=== PATIENT | female | born 1980 | race Caucasian/White ===

== ENCOUNTER 2016-04-22 18:34 | Emergency (ER) | payer OTHER ==
[2016-04-22 17:00] LABS: ASCORBIC ACID (UR NOT ORDER) NEG (NEG); BILIRUBIN, URINE NEGATIVE (NEG); KETONE, URINE NEGATIVE (NEG); LEUKOCYTE ESTERASE(NOT OR NEG (NEG); NITRITE (URINE) NEG (NEG); WBC (NOT ORDERED) (RFLEX) 5 (0-5)
[2016-04-22 17:26] LABS: BASOPHILS 0.2 %; BASOPHILS ABSOLUTE 0.03 10/3/uL (0.0-0.16); EOSINOPHILS 1.5 %; EOSINOPHILS ABSOLUTE 0.18 10/3/uL (0.0-0.53); ER CBC TAT 0 Hrs 05 Mins; HEMOGLOBIN 10.9 g/dL (12.0-16.0); IMMATURE GRANULOCYTES 0.2 %; IMMATURE GRANULOCYTES ABSOLUTE 0.03 10/3/uL (0.0-0.11); LYMPHOCYTES 16.9 %; LYMPHOCYTES ABSOLUTE 2.03 10/3/uL (0.67-4.30); MEAN CORPUS HGB CONC 31.1 g/dL (32.0-36.0); MEAN CORPUSCULAR HEMOGLOB 24.7 pg (26.0-34.0); MEAN CORPUSCULAR VOLUME 79.2 fL (80-100); MEAN PLATELET VOLUME 9.5 fL (9.2-13.0); MONOCYTES 4.2 %; NEUTROPHILS ABSOLUTE 9.26 10/3/uL (2.02-8.40); PLATELET COUNT 184 10/3/uL (150-400); RBC DISTRIBUTION WIDTH 16.6 % (12.0-16.0); RED CELL COUNT 4.42 10/6/uL (4.0-5.6)
[2016-04-22 17:27] LABS: MANUAL DIFF NO %
[2016-04-22 17:46] LABS: A/G RATIO 0.6 (0.7-1.9); ALBUMIN 2.7 G/DL (3.5-5.0); ALKALINE PHOSPHATASE 95 U/L (45-117); BUN (BLOOD UREA NITROGEN) 16 MG/DL (6-23); CALCIUM, SERUM 8.5 MG/DL (8.5-10.4); CHLORIDE, SERUM 104 MMOL/L (96-112); CO2 (CARBON DIOXIDE) 26 MMOL/L (24-34); CREATININE 1.29 MG/DL (0.55-1.02); GFR AFRICAN AMERICAN 62 ML/MIN (>=60); GFR NON AFRICAN AMERICAN 54 ML/MIN (>=60); GLOBULIN 4.6 G/DL (2.5-4.1); GLUCOSE, SERUM 85 MG/DL (60-99); POTASSIUM, SERUM 3.8 MMOL/L (3.5-5.3); SGOT(AST) 16 U/L (5-40); SGPT(ALT) 28 U/L (5-65); SODIUM, SERUM 141 MMOL/L (135-148); TOTAL BILIRUBIN 0.2 MG/DL (0-1.2); TOTAL PROTEIN 7.3 G/DL (6.0-8.5)
== END 2016-04-22 18:37 | disposition home or self-care (01) ==
LOC: ER 18:34
PROVIDERS: Emergency Medicine
DX: R10.9 Unspecified abdominal pain (principal); I10 Essential (primary) hypertension; F32.9 Major depressive disorder, single episode, unspecified; Z88.5 Allergy status to narcotic agent
CPT/HCPCS: 80053; 81001; 83690; 84703; 85025; 93005; 99284; A9270-GY

== ENCOUNTER 2016-05-01 13:50 | Inpatient (IN) | payer OTHER ==
--- NOTE | ~2016-05-01 | DS ---
Discharge Summary [facility] [address] [place]. [address] NAME: HUGO BANKS : 82 STATUS : DIS IN PAT#: [id number] AGE: 36 ADM/REG DATE : 05/01/16 MR#: [id number] REPORT SERV DATE: 06/21/16 DICTATED BY: KIAN GILL II DATE: 06/20/16 REPORT STATUS : Draft TRANSCRIBED BY: MODL DATE: 06/20/16 ADMISSION DATE: 05/01/2016 DISCHARGE DATE: 05/03/2016 DISCHARGE DIAGNOSES: 1. Radiculopathy with S1 herniated nucleus pulposus. 2. Chronic pain with opiate dependence. 3. Questionable iliac and IVC thrombus. 4. Protein S deficiency with history of deep vein thrombosis. 5. Morbid obesity. CONSULTS: Dr. Bansal with [facility] and Dr. Ramirez with [facility]. BRIEF HISTORY OF PRESENT ILLNESS: The patient is a 36-year-old female with the above history who presented to [facility] due to reported inability to walk over the prior 24 hours due to back pain and radiculopathy. For detailed history and physical examination, please see Dr. Ferrer's note from 05/01/2016. HOSPITAL COURSE: On admission, an MRI of the spine was done which showed small to moderate left central herniation with mass effect on the left S1 nerve root. No apparent high-grade central canal stenosis or cauda equina. Dr. Basnal was consulted and did not think that the patient's symptoms which seemed out of proportion to clinical exam could be from the mild to moderate S1 nerve root compression. The patient's symptoms seemed to be more related to back pain with minimal radiculopathy, and no evidence of actual neurologic compromise. She has somewhat poor effort on clinical exam. The patient's symptoms improved with Neurontin, Robaxin, and I have recommended outpatient physical therapy as she is currently ambulating well with use of a walker per PT. No inpatient rehab recommended. Regarding the questionable thrombosis, CT of the abdomen showed suspect perivenous edema adjacent to the common iliac veins and IVC. The radiologist was unable to evaluate whether the IVC and iliac veins are thrombosed though I did recommend a repeat evaluation with a venous phase enhancement at a later date. Right lower extremity Doppler was also negative for DVT. Overall, the patient was clinically stable for discharge. Dr. Ramirez thought given the concern for recurrent thrombus despite Eliquis, he changed her to Lovenox. A followup CTA with venous phase was scheduled, and the patient was subsequently discharged home. DISCHARGE MEDICATIONS: 1. Atenolol 25 mg p.o. b.i.d. 2. Lovenox 40 mg subcu b.i.d. 3. Neurontin 300 mg p.o. t.i.d. 4. [place] 10/325 mg p.o. q.6 hours p.r.n. 5. Hydrocodone/acetaminophen 10/300 one tab p.o. q.6 hours p.r.n. 6. Zofran p.r.n. 7. Effexor 75 mg p.o. at bedtime. DISCHARGE INSTRUCTIONS: She will follow up with Dr. Ramirez in one to two weeks. Otherwise, followup with her PCP in 1 to 2 weeks. Discharge Summary [address] [address] NAME: HUGO BANKS : 82 STATUS : DIS IN PAT#: [id number] AGE: 36 ADM/REG DATE : 05/01/16 MR#: [id number] REPORT SERV DATE: 06/21/16 DICTATED BY: KIAN GILL II DATE: 06/20/16 REPORT STATUS : Draft TRANSCRIBED BY: ZEENAT DATE: 06/20/16 ANDREIA/ZEENAT Kian Gill II, MD / [id number] CC: MD Asael Martinez II, M.D.
--- NOTE | ~2016-05-01 | HP ---
History And Physical [facility] [id number] [place]. [address] NAME: HUGO BANKS : [birth year] STATUS : ADM IN [facility]#: [id number] AGE: 36 ADM/REG DATE : 05/01/16 MR#: [id number] REPORT SERV DATE: 05/02/16 DICTATED BY: BECCA DOMINIQUE DATE: 05/01/16 REPORT STATUS : Draft TRANSCRIBED BY: MODL DATE: 05/01/16 DATE OF ADMISSION: 05/01/2016 REASON FOR ADMISSION: Inability to walk per patient subjectively over the past 24 hours. Prior to this, she was able to walk just fine per patient. Asael Carbajal M.D. is her primary care doctor, sees Dr. Ramirez for protein S deficiency for which she for the past several months has been on Eliquis 5 p.o. b.i.d. She has never had a PE, only DVTs, no IVC filter. HISTORY OF PRESENT ILLNESS: This is a 36-year-old obese female. She has a known past medical history of hypertension, polycystic ovarian syndrome, unfortunate diagnosis of protein S deficiency in 2007 for which she has had at least a couple of DVTs, never had a PE, never had an IVC filter, surgical history of tonsillectomy, unclear heart surgery which she described as surgical repair of coarctation of aorta at age 3, known history of chronic opioid dependence likelihood given taking hydrocodone 10 p.o. q.6 at home. The patient comes in after recently being hospitalized in [place], [place], at that time had [facility], was thought to have possible abdominal vasculature thrombosis, supposed to get CTA of the abdomen and pelvis here, however, that was canceled upon having inability to walk for the past 24 hours, comes in here has an MRI of her lumbar spine and indeed does show small to moderate left central herniation with mass effect on the left S1 nerve root. The patient has exquisite pain to straight leg raising with increased pain in her inferior buttock region per patient. The patient denies any fevers, chills, positive nausea, some emesis, appears to be nonbilious. No diarrhea. No chest pain. No chest pressure. No shortness of breath. No cough per patient. The patient states that she had nausea and vomiting for which she was hospitalized in [place], [place], apparently in late March 2016, did not receive an endoscopy at that time. We will need to get records. PAST MEDICAL HISTORY/PAST SURGICAL HISTORY: See above. REVIEW OF SYSTEMS: Review of systems done, see HPI. Otherwise, negative. ALLERGIES: APPARENTLY HAS NUMBNESS OF THE TONGUE TO LISINOPRIL UNCLEAR, VOMITING TO TRAMADOL DRUG INTOLERANCE, RED STREAKS IN HER ARM FROM MORPHINE YET TAKES LORTAB, HAS SEVERE CHEST PAIN DUE TO DHE OR DIHYDROERGOTAMINE. FAMILY HISTORY: Hypertension at least one parent. SOCIAL HISTORY: She claims not to do drugs, or do alcohol or smoke nor has ever. History And Physical [address] [address] NAME: HUGO BANKS : [birth year] STATUS : ADM IN [facility]#: [id number] AGE: 36 ADM/REG DATE : 05/01/16 MR#: [id number] REPORT SERV DATE: 05/02/16 DICTATED BY: BECCA DOMINIQUE DATE: 05/01/16 REPORT STATUS : Draft TRANSCRIBED BY: ZEENAT DATE: 05/01/16 OBJECTIVE: VITAL SIGNS: She is 208/86, 98.7, 73 pulse, 16 respiration, 90% on room air. GENERAL: No acute distress. HEENT: PERRLA. No scleral icterus. CARDIOVASCULAR: Regular rate and rhythm. No murmur. RESPIRATORY: Decreased breath sounds bibasilarly. No wheezes. No crackles. ABDOMEN: Obese, nontender. Nondistended. Positive bowel sounds. EXTREMITIES: She does not have any tenderness to palpation in that region. NEURO: She has about 4/5 power plantar flexion, dorsiflexion, bilateral lower extremities; 5/5 power in bilateral upper extremities. She is A and O 4/4, GCS of 15. PSYCH: She is mildly anxious. LABORATORY DATA: White count 14.7, hemoglobin 10.6, 293,000 platelets, 4.1 potassium, 27 bicarb, 0.81 creatinine, 12 BUN, 139 sodium, 88 sugar. MRI see above. She does not have an EKG at the moment. ASSESSMENT AND PLAN: 1. Positive radiographic MRI, positive left S1 nerve root sciatica, small to moderate left central herniated with mass effect with subjective inability to walk, positive left straight leg raise. 2. Concern for possible mesenteric thrombosis due to her history of protein S deficiency. Currently anticoagulated as the patient claims compliance to Eliquis 5 p.o. b.i.d. 3. History of narcotic dependence likelihood. 4. History of nausea and vomiting, formerly addressed in [facility]. We need to get records regarding that disposition. PLAN: We will go ahead and admit this patient. We will get blood cultures given her SIRS of 14,700 white count. I would also like to place her on baclofen 5 p.o. t.i.d. p.r.n., Robaxin 500 p.o. t.i.d. p.r.n., hydralazine 10 IV q.4h for hypertensive urgency. Then, we will do carvedilol 3.125 p.o. b.i.d., and titrate as appropriate. We will do bilateral lower extremity ultrasounds regarding this VTE risk and CTA of her abdomen pelvis for possible mesenteric thrombosis risk and get records from Dr. Ramirez as Dr. Ramirez had requested that CTA as an outpatient. We will also get records from [place], [place] and consult [facility] as the patient does have significant motor subjective loss with some mild 4/5 power objective loss that may necessitate possible future surgery if she is intractable to maximal medical management including physical therapy and pain control. See rest of my orders. All questions were answered. It took well over 60 minutes to do. 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 WST/MODL Becca Minaya History And Physical [address] [address] NAME: HUGO BANKS : [birth year] STATUS : ADM IN PAT#: [id number] AGE: 36 ADM/REG DATE : 05/01/16 MR#: [id number] REPORT SERV DATE: 05/02/16 DICTATED BY: BECCA DOMINIQUE DATE: 05/01/16 REPORT STATUS : Draft TRANSCRIBED BY: MODL DATE: 05/01/16 DO Nabil / [id number] CC: Alexei Marquez, M.D.
--- NOTE | ~2016-05-01 | CN ---
Consultation Report [facility] [address] [place]. [address] NAME: HUGO BANKS : 82 STATUS : ADM IN PAT#: [id number] AGE: 36 ADM/REG DATE : 05/01/16 MR#: [id number] REPORT SERV DATE: 05/02/16 DICTATED BY: KIAN BANSAL II DATE: 05/02/16 REPORT STATUS : Draft TRANSCRIBED BY: ZEENAT DATE: 05/02/16 DATE OF CONSULTATION: 05/02/2016 CHIEF COMPLAINT: Inability to walk over the last 48 hours. She has recently been in [place], [place] at the hospital down there for medical issues, possible abdominal vasculature thrombosis. She does also have an MRI of the lumbar spine, which apparently shows a [id number] left HNP at L5-S1. She did have some leg pain she reports, but now she simply cannot walk she says. PAST MEDICAL HISTORY: Protein S deficiency, history of hypertension, history of DVTs. She also has a history of opioid dependency. REVIEW OF SYSTEMS: Please see the ER triage sheet dated 05/01/2016. I have reviewed and agree with it. ALLERGIES: PLEASE SEE THE MAR. MEDICATIONS: Please see the MAR. PHYSICAL EXAMINATION: GENERAL: Reveals a female in no acute distress. She is awake, alert, and oriented. She is morbidly obese. NECK: Supple. CHEST: Reveals no stridor on inspiration or expiration. CARDIOVASCULAR: Regular rate and rhythm when I palpate the radial pulse. ABDOMEN: Obese and nontender. Lower extremities are fairly normal. She is moving her legs well. She has 4/5 strength in the legs. PSYCHIATRIC: Reveals that she is mildly anxious. IMAGING: MRI as noted above. IMPRESSION AND PLAN: She does have a complicated picture. There was some question of a possible aortic thrombosis. Dr. Ramirez is also helping us sort all of this out. In the meantime, I will look at her MRI. According to the report, however, I would not feel that a ajpyn-za-gjealcad sized L5-S1 herniated nucleus pulposus would cause her inability to have her legs support her now while walking. Again, this is currently unclear to me, but I will hopefully be able to confer with Dr. Ramirez and Dr. Ferrer, as well as review the MRI today. ABBIE/MODL Kian Bansal Consultation Report [facility] [address] [place]. [address] NAME: HUGO BANKS : 82 STATUS : ADM IN PAT#: [id number] AGE: 36 ADM/REG DATE : 05/01/16 MR#: [id number] REPORT SERV DATE: 05/02/16 DICTATED BY: KIAN BANSAL II DATE: 05/02/16 REPORT STATUS : Draft TRANSCRIBED BY: MODLucia DATE: 05/02/16 Alexei DIALLO / [id number] CC: MD Asael Martinez II, M.D.
[2016-05-01 14:29] LABS: BASOPHILS 0.3 %; BASOPHILS ABSOLUTE 0.04 10/3/uL (0.0-0.16); EOSINOPHILS 1.1 %; EOSINOPHILS ABSOLUTE 0.16 10/3/uL (0.0-0.53); ER CBC TAT 0 Hrs 11 Mins; HEMATOCRIT 34.1 % (36.0-48.0); HEMOGLOBIN 10.6 g/dL (12.0-16.0); IMMATURE GRANULOCYTES 0.3 %; IMMATURE GRANULOCYTES ABSOLUTE 0.04 10/3/uL (0.0-0.11); LYMPHOCYTES 23.1 %; MANUAL DIFF NO %; MEAN CORPUS HGB CONC 31.1 g/dL (32.0-36.0); MEAN CORPUSCULAR HEMOGLOB 23.9 pg (26.0-34.0); MEAN CORPUSCULAR VOLUME 76.8 fL (80-100); MEAN PLATELET VOLUME 9.2 fL (9.2-13.0); MONOCYTES 6.8 %; NEUTROPHILS 68.4 %; NEUTROPHILS ABSOLUTE 10.07 10/3/uL (2.02-8.40); PLATELET COUNT 293 10/3/uL (150-400); RBC DISTRIBUTION WIDTH 16.5 % (12.0-16.0); RED CELL COUNT 4.44 10/6/uL (4.0-5.6); WHITE BLOOD CELLS 14.7 10/3/uL (4.5-10.5)
[2016-05-01 15:32] LABS: BUN (BLOOD UREA NITROGEN) 12 MG/DL (6-23); CALCIUM, SERUM 8.4 MG/DL (8.5-10.4); CHLORIDE, SERUM 102 MMOL/L (96-112); CO2 (CARBON DIOXIDE) 27 MMOL/L (24-34); CREATININE 0.81 MG/DL (0.55-1.02); GFR AFRICAN AMERICAN 109 ML/MIN (>=60); GFR NON AFRICAN AMERICAN 94 ML/MIN (>=60); GLUCOSE, SERUM 88 MG/DL (60-99); POTASSIUM, SERUM 4.1 MMOL/L (3.5-5.3); SODIUM, SERUM 139 MMOL/L (135-148)
[2016-05-01] MEDS ORDERED: EFFEXXR75 PO (17:28)
[2016-05-01] MEDS ORDERED: ELIQUIS 5 MG TAB5 MG PO (17:28)
[2016-05-01] MEDS ORDERED: NORCO1 TAB PO (17:28)
[2016-05-01] MEDS ORDERED: ATEN25 PO (17:28)
[2016-05-01] MEDS ORDERED: ZOFRAN4 PO (17:29)
[2016-05-02 10:11] LABS: BASOPHILS 0.2 %; BASOPHILS ABSOLUTE 0.03 10/3/uL (0.0-0.16); EOSINOPHILS 1.3 %; EOSINOPHILS ABSOLUTE 0.18 10/3/uL (0.0-0.53); HEMATOCRIT 33.5 % (36.0-48.0); HEMOGLOBIN 10.4 g/dL (12.0-16.0); IMMATURE GRANULOCYTES 0.2 %; IMMATURE GRANULOCYTES ABSOLUTE 0.03 10/3/uL (0.0-0.11); LYMPHOCYTES 18.2 %; LYMPHOCYTES ABSOLUTE 2.46 10/3/uL (0.67-4.30); MEAN CORPUSCULAR HEMOGLOB 24.5 pg (26.0-34.0); MEAN PLATELET VOLUME 9.3 fL (9.2-13.0); MONOCYTES 7.9 %; MONOCYTES ABSOLUTE 1.07 10/3/uL (0.21-1.20); NEUTROPHILS 72.2 %; NEUTROPHILS ABSOLUTE 9.73 10/3/uL (2.02-8.40); PLATELET COUNT 298 10/3/uL (150-400); RBC DISTRIBUTION WIDTH 16.2 % (12.0-16.0); RED CELL COUNT 4.24 10/6/uL (4.0-5.6); WHITE BLOOD CELLS 13.5 10/3/uL (4.5-10.5)
[2016-05-02 10:12] LABS: MANUAL DIFF NO %
[2016-05-02 10:49] LABS: A/G RATIO 0.5 (0.7-1.9); ALBUMIN 2.5 G/DL (3.5-5.0); ALKALINE PHOSPHATASE 119 U/L (45-117); BUN (BLOOD UREA NITROGEN) 14 MG/DL (6-23); CHLORIDE, SERUM 100 MMOL/L (96-112); CO2 (CARBON DIOXIDE) 27 MMOL/L (24-34); FERRITIN 93 NG/ML (8-252); FOLATE 18.9 NG/ML (>5.2); GFR AFRICAN AMERICAN 96 ML/MIN (>=60); GFR NON AFRICAN AMERICAN 83 ML/MIN (>=60); GLOBULIN 5.5 G/DL (2.5-4.1); GLUCOSE, SERUM 95 MG/DL (60-99); IRON BINDING CAPACITY 260 MCG/DL (225-410); IRON, SERUM 19 MCG/DL (35-150); PHOSPHORUS, SERUM 3.7 MG/DL (2.5-4.5); POTASSIUM, SERUM 3.9 MMOL/L (3.5-5.3); SGOT(AST) 11 U/L (5-40); SGPT(ALT) 16 U/L (5-65); SODIUM, SERUM 138 MMOL/L (135-148); TOTAL BILIRUBIN 0.3 MG/DL (0-1.2); ULTRASENSITIVE TSH 0.856 MCIU/ML (0.358-3.740)
[2016-05-03 11:27] LABS: BASOPHILS 0.2 %; BASOPHILS ABSOLUTE 0.03 10/3/uL (0.0-0.16); EOSINOPHILS 1.5 %; EOSINOPHILS ABSOLUTE 0.19 10/3/uL (0.0-0.53); HEMATOCRIT 31.5 % (36.0-48.0); HEMOGLOBIN 9.6 g/dL (12.0-16.0); IMMATURE GRANULOCYTES 0.4 %; IMMATURE GRANULOCYTES ABSOLUTE 0.05 10/3/uL (0.0-0.11); LYMPHOCYTES 20.6 %; LYMPHOCYTES ABSOLUTE 2.66 10/3/uL (0.67-4.30); MEAN CORPUS HGB CONC 30.5 g/dL (32.0-36.0); MEAN CORPUSCULAR VOLUME 78.8 fL (80-100); MEAN PLATELET VOLUME 9.4 fL (9.2-13.0); MONOCYTES 7.7 %; MONOCYTES ABSOLUTE 0.99 10/3/uL (0.21-1.20); NEUTROPHILS 69.6 %; NEUTROPHILS ABSOLUTE 8.99 10/3/uL (2.02-8.40); PLATELET COUNT 342 10/3/uL (150-400); RBC DISTRIBUTION WIDTH 16.4 % (12.0-16.0); WHITE BLOOD CELLS 12.9 10/3/uL (4.5-10.5)
[2016-05-03 11:30] LABS: MANUAL DIFF NO %
[2016-05-03 11:40] LABS: BUN (BLOOD UREA NITROGEN) 13 MG/DL (6-23); CALCIUM, SERUM 8.7 MG/DL (8.5-10.4); CHLORIDE, SERUM 100 MMOL/L (96-112); CO2 (CARBON DIOXIDE) 29 MMOL/L (24-34); CREATININE 1.04 MG/DL (0.55-1.02); GFR AFRICAN AMERICAN 81 ML/MIN (>=60); GFR NON AFRICAN AMERICAN 70 ML/MIN (>=60); GLUCOSE, SERUM 113 MG/DL (60-99); PHOSPHORUS, SERUM 3.3 MG/DL (2.5-4.5); POTASSIUM, SERUM 3.7 MMOL/L (3.5-5.3); SODIUM, SERUM 139 MMOL/L (135-148)
[2016-05-03 11:48] LABS: T PROTEIN (ELECT)(NOT OR 7.1 G/DL (6.0-8.5)
[2016-05-03 12:59] LABS: SED RATE 107 MM/HR (0-20)
[2016-05-03] MEDS ORDERED: LOVENOX40 SC (17:40)
[2016-05-03] MEDS ORDERED: NEUR300 PO (17:41)
[2016-05-03] MEDS ORDERED: XODOL 10-300 T1 EACH PO (17:41)
[2016-05-04 11:03] LABS: A/G 0.63 RATIO (0.9-2.10); ALB RELATIVE % 38.6 % (60.0-89.0); ALBUMIN (ELECTRO) 2.74 GM/DL (3.2-5.5); ALPHA 1 (ELECTRO) 0.52 GM/DL (0.1-0.4); ALPHA 1 RELAT % (NOT ORD) 7.3 % (1.0-4.0); ALPHA 2 (ELECTRO) 1.12 GM/DL (0.5-1.10); ALPHA 2 RELAT % 15.8 % (4.5-26.0); BETA GLOBULIN (SPE) 1.07 GM/DL (0.60-1.30); BETA RELATIVE % 15.1 % (9.0-22.0); GAMMA GLOBULIN (SPE) 1.65 G/DL (0.70-1.60); GAMMA RELAT % 23.2 % (6.0-22.0)
== END 2016-05-03 19:35 | disposition home or self-care (01) | DRG 552 ==
LOC: ER 13:50 → 4SO 18:15
PROVIDERS: Emergency Medicine; Internal Medicine; Internal Medicine Hematology & Oncology
DX: M51.16 Intervertebral disc disorders with radiculopathy, lumbar region (principal); D68.59 Other primary thrombophilia; Z68.42 Body mass index [BMI] 45.0-49.9, adult; M53.3 Sacrococcygeal disorders, not elsewhere classified; G89.29 Other chronic pain; M54.9 Dorsalgia, unspecified; E66.01 Morbid (severe) obesity due to excess calories; Z86.718 Personal history of other venous thrombosis and embolism; I10 Essential (primary) hypertension; E28.2 Polycystic ovarian syndrome; Z79.891 Long term (current) use of opiate analgesic; Z88.8 Allergy status to other drugs, medicaments and biological substances; Z88.5 Allergy status to narcotic agent
CPT/HCPCS: 72158; 74175; 80048; 80053; 82607; 82728; 82746; 82962; 83540; 83550; 83605; 83735; 84100; 84145; 84155; 84165; 84443; 85025; 85652; 86140; 86592; 87040; 93005; 93970; 96372; 96374; 96375; 96376; 97162-GP; 99285; A9270-GY; A9577; J1170; J2405; J3360; Q9967